=== PATIENT | male | born 1960 | race Caucasian/White ===

== ENCOUNTER 2017-06-25 15:20 | Emergency (ER) | payer BC, OTHER ==
--- NOTE | 2017-06-25 15:31 | PDOC ---
History of Present Illness - General History Source: Patient Exam Limitations: No Limitations - History of Present Illness Initial Comments: 06/25/17 15:46 The patient is a 57 year old male with a significant past medical history of sleep apnea, HTN, who presents to the ED with lightheadedness since this morning. Patient states he woke up feeling light headed even while laying in bed. He states the lightheadedness worsens while moving around. He states he took his blood pressure and it was 147. He took a shower and rechecked, bp was 161/81. Patient states he felt baseline yesterday. Patient denies chest pain, SOB, vertigo, fever, chills, nausea, vomiting, diarrhea. Denies dysuria, frequency, hematuria. Patient denies any significant family history. Patient denies any significant past surgical history. Takes multivitamins, and baby aspirin. Patient drinks alcohol occasionally. <Geoffrey Sellers - Last Filed: 06/25/17 15:46> - History of Present Illness Initial Comments: 06/25/17 18:15 Physical exam: Alert and oriented well-developed well-nourished no acute distress cheerful and cooperative There is slight vertigo with rapid head movement and change of positions, but this resolves rapidly PERRLA 4 mm, fundi benign with sharp disc margins and good central venous pulsations. ENT clear EOMs full without nystagmus. Visual valdes intact to confrontation. Neck supple without bruit mass or nodes Chest clear CV regular without murmur rub or gallop Abdomen benign Extremities no CCE Neurological C2 to 12 intact. Strength full and symmetric. No focal sensory or motor deficits. DTRs 2+ symmetric. Babinskis down. Gait stable and unimpaired, except for momentary vertigo immediately after rising. EKG, troponin, labs, and neurological exam normal. This is most likely a mild acute labyrinthitis of uncertain origin. Meclizine with considerable improvement. To continue and follow-up with primary physician and ENT, or return to ER if further symptoms develop. Fully ambulatory and asymptomatic upon discharge with his to follow-up as directed <Kraig Hdz - Last Filed: 06/25/17 18:18> - General Chief Complaint: Lightheaded Stated Complaint: LIGHTHEADED, HIGH BLOOD PRESSURE AT HOME Time Seen by Provider: 06/25/17 15:27 Past History <Geoffrey Sellers - Last Filed: 06/25/17 15:46> - Past Medical History HTN: Yes Hypercholesterolemia: Yes - Suicide/Smoking/Psychosocial Hx Smoking Status: Yes Smoking History: Current some day smoker Number of Cigarettes Smoked Daily: 0 Cigars Per Day: 1 <AndreinaKraig Vidya - Last Filed: 06/25/17 18:18> - Past Medical History Allergies/Adverse Reactions: Allergies Allergy/AdvReac Type Severity Reaction Status Date / Time No Known Allergies Allergy Verified 06/25/17 15:22 Home Medications: Ambulatory Orders Aspirin Coated [Ecotrin -] 81 mg PO DAILY 02/03/13 Atorvastatin Calcium [Lipitor] 10 mg PO DAILY 02/03/13 Cholecalciferol (Vitamin D3) [Vitamin D3] 5,000 unit PO DAILY 06/25/17 Losartan Potassium 50 mg PO DAILY 06/25/17 Magnesium Oxide [Magnesium] 500 mg PO DAILY 06/25/17 Meclizine HCl 25 - 50 mg PO TID PRN #15 tablet 06/25/17 Vitamin E 400 unit PO DAILY 06/25/17 Review of Systems - Review of Systems Able to Perform ROS?: Yes Comments:: 06/25/17 15:46 GENERAL/CONSTITUTIONAL: No fever or chills. No weakness. HEAD, EYES, EARS, NOSE AND THROAT: No change in vision. No ear pain or discharge. No sore throat. CARDIOVASCULAR: No chest pain or shortness of breath. RESPIRATORY: No cough, wheezing, or hemoptysis. GASTROINTESTINAL: No nausea, vomiting, diarrhea or constipation. GENITOURINARY: No dysuria, frequency, or change in urination. MUSCULOSKELETAL: No joint or muscle swelling or pain. No neck or back pain. SKIN: No rash NEUROLOGIC: + lightheadedness. No headache, vertigo, loss of consciousness, or change in strength/sensation. ENDOCRINE: No increased thirst. No abnormal weight change. HEMATOLOGIC/LYMPHATIC: No anemia, easy bleeding, or history of blood clots. ALLERGIC/IMMUNOLOGIC: No hives or skin allergy. <Geoffrey Sellers - Last Filed: 06/25/17 15:46> *Physical Exam - Vital Signs Last Vital Signs Temp Pulse Resp BP Pulse Ox 98.7 F 102 H 18 142/58 96 06/25/17 15:20 06/25/17 15:20 06/25/17 15:20 06/25/17 15:20 06/25/17 15:20 - Physical Exam Comments: 06/25/17 15:47 GENERAL: Awake, alert, and fully oriented, in no acute distress HEAD: No signs of trauma EYES: PERRLA, EOMI, sclera anicteric, conjunctiva clear ENT: Auricles normal inspection, hearing grossly normal, nares patent, oropharynx clear without exudates. Moist mucosa NECK: Normal ROM, supple, no lymphadenopathy, JVD, or masses LUNGS: Breath sounds equal, clear to auscultation bilaterally. No wheezes, and no crackles HEART: Regular rate and rhythm, normal S1 and S2, no murmurs, rubs or gallops ABDOMEN: Soft, nontender, normoactive bowel sounds. No guarding, no rebound. No masses EXTREMITIES: Normal range of motion, no edema. No clubbing or cyanosis. No cords, erythema, or tenderness NEUROLOGICAL: Cranial nerves II through XII grossly intact. Normal speech, normal gait SKIN: Warm, Dry, normal turgor, no rashes or lesions noted. <Geoffrey Sellers - Last Filed: 06/25/17 15:46> ED Treatment Course - LABORATORY CBC & Chemistry Diagram: 06/25/17 15:41 06/25/17 15:41 <Geoffrey Sellers - Last Filed: 06/25/17 15:46> - LABORATORY CBC & Chemistry Diagram: 06/25/17 15:41 06/25/17 15:41 <Kraig Hdz - Last Filed: 06/25/17 18:18> Medical Decision Making - Medical Decision Making 06/25/17 15:36 EKG normal sinus rhythm 93/m normal axes and intervals no ST-T wave changes normal EKG. 06/25/17 15:41 Patient felt lightheaded is and is he woke up this morning while lying in bed. Questionable spinning sensation and mild nausea associated. No URI symptoms or earache/tinnitus/resecuring. Blood pressure was on the high side at 160/90. Being treated for high blood pressure and cholesterol. No coronary artery disease known. No family history of coronary artery disease or neurologic diseases. 06/25/17 17:01 Labs: No significant abnormalities including negative troponin No orthostatic changes with blood pressure remaining in the 120/80 range and pulse in the 80 range. Most likely etiology is nonspecific or viral labyrinthitis. No sign of cardiac or other neurologic disease. Trial of meclizine. Patient improved. Symptomatic treatment and follow-up if symptoms worsen or do not improve 06/25/17 17:02 06/25/17 17:05 <Kraig Hdz - Last Filed: 06/25/17 18:18> *DC/Admit/Observation/Transfer - Attestations Scribe Attestion: 06/25/17 15:47 Documentation prepared by Geoffrey Sellers, acting as medical records director for Kraig Solomon MD. <Geoffrey Sellers - Last Filed: 06/25/17 15:46> - Discharge Dispostion Admit: No <Kraig Hdz - Last Filed: 06/25/17 18:18> Diagnosis at time of Disposition: Viral labyrinthitis Qualifiers: Laterality: unspecified laterality Qualified Code(s): H83.09 - Labyrinthitis, unspecified ear - Discharge Dispostion Disposition: HOME Condition at time of disposition: Improved - Prescriptions Prescriptions: Meclizine HCl 25 - 50 mg PO TID PRN #15 tablet PRN Reason: Vertigo - Referrals Referrals: Khoi Peterson MD [Staff Physician] - 1 week - Patient Instructions Printed Discharge Instructions: DI for Labyrinthitis
[2017-06-25 15:35] VITALS: BMI 29.7
[2017-06-25 15:46] LABS: BASOPHIL 0.3 % (0-2.0); EOSINOPHIL 0.7 % (0-4.5); MCH 29.2 pg (25.7-33.7); MCHC 33.8 g/dl (32.0-35.9); MEAN CELL VOLUME 86.4 fl (80-96); NEUTROPHILS 80.4 % (42.8-82.8); PLATELET COUNT 262 K/MM3 (134-434); RDW 12.4 % (11.9-15.9); WHITE BLOOD COUNT 7.8 K/mm3 (4.0-10.8)
[2017-06-25 16:01] LABS: URINE APPEARANCE Clear; URINE BILIRUBIN Negative (NEGATIVE); URINE BLOOD Negative (NEGATIVE); URINE COLOR AMBER; URINE GLUCOSE (UA) Negative (NEGATIVE); URINE KETONE Negative (NEGATIVE); URINE LEUK ESTERASE Negative (NEGATIVE); URINE NITRITE Negative (NEGATIVE); URINE PROTEIN Negative (NEGATIVE); URINE UROBILINOGEN 0.2 (0.2-1.0)
[2017-06-25 16:07] LABS: ALK PHOS 51 U/L (32-92); ANION GAP 7 (8-16); CALCIUM 9.1 mg/dl (8.4-10.2); CO2 25 mmol/L (22-28); CPK 84 IU/L (39-308); CREATININE 0.8 mg/dl (0.6-1.3); GLUCOSE,RANDOM 139 mg/dl (74-106); SGOT/AST 16 U/L (10-42); SGPT/ALT 18 U/L (10-40); TOT PROT 6.6 g/dl (6.4-8.3)
[2017-06-25 16:16] LABS: TROPONIN I (DFP) < 0.03 ng/ml (0.03-0.50)
[2017-06-25 16:22] VITALS: TEMP 98
[2017-06-25 16:23] VITALS: BP 123/81; PULSE 83
[2017-06-25] MEDS ORDERED: MECLIZINE HCL 25 MG TABLET (FP) ONE (16:40)
[2017-06-25] MEDS ORDERED: MECLIZINE HCL 25 MG TABLET (FP) PO ONE (16:42)
--- NOTE | 2017-06-26 16:43 | EKG ---
Test Reason : Blood Pressure : / mmHG Vent. Rate : 093 BPM Atrial Rate : 093 BPM P-R Int : 156 ms QRS Dur : 096 ms QT Int : 366 ms P-R-T Axes : 007 012 013 degrees QTc Int : 455 ms NORMAL SINUS RHYTHM NORMAL ECG NO PREVIOUS ECGS AVAILABLE Confirmed by JENNIFER WILKS MD ([id number]) on 06/26/2017 4:43:13 PM Referred By: APRIL MONAHAN Confirmed By:JENNIFER WILKS MD
== END 2017-06-25 17:15 | disposition home or self-care (01) ==
LOC: FER 15:20
DX: H83.09 Labyrinthitis, unspecified ear (principal); I10 Essential (primary) hypertension; G47.30 Sleep apnea, unspecified; E78.00 Pure hypercholesterolemia, unspecified
CPT/HCPCS: 36415; 71010-TC; 80053; 81003; 82550; 84484; 85025; 93005; 99284-25